=== PATIENT | female | born 1990 ===

== ENCOUNTER 2016-11-18 21:14 | Emergency (ER) | payer SELFPAY ==
[2016-11-18 21:14] VITALS: BMI 30.2
[2016-11-18 21:57] VITALS: BP 131/77; PULSE 78; RESP 16; TEMP 98.2; O2SAT 100
--- NOTE | 2016-11-18 22:43 | ED PDOC ---
HPI: Abdomen Time Seen by Provider: 11/18/16 22:08 Chief Complaint (Nursing): Abdominal Pain Chief Complaint (Provider): : abdominal pain History Per: Patient History/Exam Limitations: no limitations Onset/Duration Of Symptoms: Days (3) Current Symptoms Are (Timing): Still Present Location Of Pain/Discomfort: RLQ, LLQ, Suprapubic Quality Of Discomfort: Cramping Additional History Per: Patient Additional Complaint(s): 26 y/o female, approx 6 weeks gestation, presents with lower abdominal cramping x 3 days. Denies fever, nausea/vomiting, dysuria, hematuria, vaginalbleeding/ discharge. Patient also notes red rash to neck x 3 days. Associated mild itching. Denies known allergen. Abnormal Vaginal Bleeding: No Last Menstral Period: 09/30/16 : 2 Para: 1 Miscarriage: 0 Past Medical History Reviewed: Historical Data, Nursing Documentation, Vital Signs Vital Signs: Last Vital Signs Temp 98.2 F 11/18/16 21:53 Pulse 78 11/18/16 21:53 Resp 16 11/18/16 21:53 BP 131/77 11/18/16 21:53 Pulse Ox 100 11/19/16 01:07 - Medical History PMH: Gastritis - Surgical History Surgical History: No Surg Hx - Family History Family History: States: Unknown Family Hx - Home Medications Home Medications: Ambulatory Orders Medication Instructions Recorded Famotidine [Pepcid] 20 mg PO DAILY #30 tab 03/05/16 Ondansetron ODT [Zofran ODT] 4 mg PO TID #21 odt 03/05/16 Naproxen [Naprosyn] 500 mg PO BID PRN #15 tablet 03/09/16 Acetaminophen 325 mg PO Q6H PRN #50 tablet 03/21/16 Omeprazole 40 mg PO DAILY #30 capsule. 03/21/16 - Allergies Allergies/Adverse Reactions: Allergies Allergy/AdvReac Type Severity Reaction Status Date / Time No Known Allergies Allergy Verified 11/18/16 21:53 Review of Systems ROS Statement: Except As Marked, All Systems Reviewed And Found Negative Genitourinary Female: Positive for: Pelvic Pain Skin: Positive for: Rash Physical Exam - Reviewed Nursing Documentation Reviewed: Yes Vital Signs Reviewed: Yes - Physical Exam Appears: Positive for: Well, Non-toxic, No Acute Distress Head Exam: Positive for: ATRAUMATIC, NORMAL INSPECTION, NORMOCEPHALIC Skin: Positive for: Rash (erythematous patchy flat petecchiae rash noted to neck ) ENT: Positive for: Normal ENT Inspection Cardiovascular/Chest: Positive for: Regular Rate, Rhythm Respiratory: Positive for: Normal Breath Sounds Gastrointestinal/Abdominal: Positive for: Bowel Sounds, Soft, Tenderness (rlq, suprpaubic, llq) Extremity: Positive for: Normal ROM Neurologic/Psych: Positive for: Alert, Oriented - Laboratory Results Result Diagrams: 11/18/16 23:47 11/18/16 23:47 Urine POC: Positive Urine dip results: Negative for: Leukocyte Esterase, Blood, Nitrate, Ketones - ECG O2 Sat by Pulse Oximetry: 100 - Progress ED Course And Treament: labs, urine, u/s EXAM: US , Transvaginal. CLINICAL HISTORY: 26 years old, female; Pain; Other: Pelvic pain; Gestational age or lmp: 09/30/16 ; ; Additional info: , pelvic pain TECHNIQUE: Real-time transvaginal obstetrical ultrasound of the maternal pelvis and a first trimester with image documentation. Transvaginal imaging was used for better evaluation of the fetus and adnexa. COMPARISON: No relevant prior studies available. FINDINGS: Gestation: Single live intrauterine gestation. heart rate of 163 beats per minute. [place]-rump length of 1.26 cm, correlating with gestational age of 7 weeks 3 days. Uterus/cervix: No subchorionic hemorrhage. No cervical dilatation or effacement. Ovaries: Normal ovaries. No adnexal masses. Free fluid: No significant free fluid. IMPRESSION: 1. Single live intrauterine gestation. 2. Incidental/non-acute findings are described above. Patient educated on findings, discharged with instructions to follow up [facility]. Advised cool compresses to rash, calamine lotion for itching, powder. Return to ED for worsening/concerning symptoms. Disposition - Clinical Impression Clinical Impression: Abdominal pain in , Rash - Patient ED Disposition Is Patient to be Admitted: No Counseled Patient/Family Regarding: Studies Performed, Diagnosis, Need For Followup - Disposition [facility]] Jania Calvo MD [Primary Care Provider] - Disposition: Routine/Home Disposition Time: 00:51 Condition: STABLE Instructions: Abdominal Pain in (ED), Acute Rash (ED)
[2016-11-19 00:05] LABS: BASO % 0.2 % (0.0-2.0); EOS % 0.5 % (0.0-4.0); HEMATOCRIT 37.2 % (34.0-47.0); LYMPH # 2.1 K/uL (1.0-4.3); LYMPH % 24.3 % (20.0-40.0); MEAN CELL VOLUME 84.2 fl (81.0-99.0); MEAN CORPUSCULAR HEMOGLOBIN 28.4 pg (27.0-31.0); MEAN CORPUSCULAR HGB CONC 33.7 g/dL (33.0-37.0); MONO # 0.7 K/uL (0.0-0.8); MONO % 8.3 % (0.0-10.0); NEUT # 5.7 K/uL (1.8-7.0); NEUT % 66.7 % (50.0-75.0); RED CELL DISTRIBUTION WIDTH 16.4 % (11.5-14.5); WHITE BLOOD COUNT 8.5 K/uL (4.8-10.8)
[2016-11-19 00:07] LABS: BLOOD UREA NITROGEN 5 mg/dl (7-17); CARBON DIOXIDE 24 mmol/L (22-30); CHLORIDE 100 mmol/L (98-107); GFR AFRICAN-AMERICAN > 60; GLUCOSE,RANDOM 87 mg/dL (65-105); POTASSIUM 3.5 MMOL/L (3.6-5.0); SODIUM 136 mmol/l (132-148)
[2016-11-19 00:08] LABS: ALB/GLOB RATIO 1.3 (1.0-2.1); ALKALINE PHOSPHATASE 51 U/L (38-126); ALT/SGPT 19 U/L (9-52); AST/SGOT 21 U/L (14-36); BILIRUBIN,TOTAL 0.6 mg/dl (0.2-1.3); CALCIUM 9.2 mg/dL (8.4-10.2); TOTAL PROTEIN 6.8 G/DL (6.3-8.2)
--- NOTE | 2016-11-19 00:16 | US ---
EXAM: US , Transvaginal. CLINICAL HISTORY: 26 years old, female; Pain; Other: Pelvic pain; Gestational age or lmp: 09/30/16; ; Additional info: , pelvic pain TECHNIQUE: Real-time transvaginal obstetrical ultrasound of the maternal pelvis and a first trimester with image documentation. Transvaginal imaging was used for better evaluation of the fetus and adnexa. COMPARISON: No relevant prior studies available. FINDINGS: Gestation: Single live intrauterine gestation. heart rate of 163 beats per minute. [place]-rump length of 1.26 cm, correlating with gestational age of 7 weeks 3 days. Uterus/cervix: No subchorionic hemorrhage. No cervical dilatation or effacement. Ovaries: Normal ovaries. No adnexal masses. Free fluid: No significant free fluid. IMPRESSION: 1. Single live intrauterine gestation. 2. Incidental/non-acute findings are described above.
== END 2016-11-19 02:51 | disposition home or self-care (01) ==
LOC: H.ER 21:14
DX: O26.891 Other specified pregnancy related conditions, first trimester (principal); R10.2 Pelvic and perineal pain; R21 Rash and other nonspecific skin eruption

== ENCOUNTER 2017-01-16 03:43 | Emergency (ER) | payer MEDICAID, OTHER ==
[2017-01-16 03:43] VITALS: BMI 30.2
[2017-01-16 04:26] VITALS: BP 117/67; PULSE 81; RESP 20; TEMP 99.2; O2SAT 98
--- NOTE | 2017-01-16 04:28 | ED PDOC ---
HPI: Chest Pain Time Seen by Provider: 01/16/17 03:50 Chief Complaint (Nursing): Chest Pain Chief Complaint (Provider): Chest Pain History Per: Patient Additional Complaint(s): Pt reports she is approx 15 weeks and Complains of left sided chest pain since yesterday. Reports pain has been constant and is worsened today and now accompanied by a headache. No acute distress, patient is anxious on assessment. Past Medical History Vital Signs: Last Vital Signs Temp 99.2 F 01/16/17 04:05 Pulse 81 01/16/17 04:05 Resp 20 01/16/17 04:05 BP 117/67 01/16/17 04:05 Pulse Ox 98 01/16/17 04:05 - Medical History PMH: Gastritis - Family History Family History: States: Unknown Family Hx - Home Medications Home Medications: Ambulatory Orders Medication Instructions Recorded Famotidine [Pepcid] 20 mg PO DAILY #30 tab 03/05/16 Ondansetron ODT [Zofran ODT] 4 mg PO TID #21 odt 03/05/16 Naproxen [Naprosyn] 500 mg PO BID PRN #15 tablet 03/09/16 Acetaminophen 325 mg PO Q6H PRN #50 tablet 03/21/16 Omeprazole 40 mg PO DAILY #30 capsule. 03/21/16 - Allergies Allergies/Adverse Reactions: Allergies Allergy/AdvReac Type Severity Reaction Status Date / Time No Known Allergies Allergy Verified 01/16/17 04:05 - ECG O2 Sat by Pulse Oximetry: 98
[2017-01-16 04:49] LABS: BASO % 0.2 % (0.0-2.0); EOS % 0.5 % (0.0-4.0); HEMATOCRIT 35.6 % (34.0-47.0); LYMPH # 1.5 K/uL (1.0-4.3); LYMPH % 15.7 % (20.0-40.0); MEAN CELL VOLUME 87.6 fl (81.0-99.0); MEAN CORPUSCULAR HEMOGLOBIN 29.5 pg (27.0-31.0); MEAN CORPUSCULAR HGB CONC 33.7 g/dL (33.0-37.0); MEAN PLATELET VOLUME 8.8 fl (7.2-11.7); MONO # 0.8 K/uL (0.0-0.8); MONO % 8.1 % (0.0-10.0); NEUT # 7.3 K/uL (1.8-7.0); NEUT % 75.5 % (50.0-75.0); NRBC % 0.1 % (0.0-0.0); RED CELL DISTRIBUTION WIDTH 13.8 % (11.5-14.5); WHITE BLOOD COUNT 9.6 K/uL (4.8-10.8)
[2017-01-16 04:55] LABS: ALB/GLOB RATIO 1.2 (1.0-2.1); ALKALINE PHOSPHATASE 47 U/L (38-126); ALT/SGPT 20 U/L (9-52); AST/SGOT 18 U/L (14-36); BILIRUBIN,TOTAL 0.2 mg/dl (0.2-1.3); BLOOD UREA NITROGEN 5 mg/dl (7-17); CALCIUM 8.6 mg/dL (8.4-10.2); CARBON DIOXIDE 22 mmol/L (22-30); CHLORIDE 105 mmol/L (98-107); GFR AFRICAN-AMERICAN > 60; GLUCOSE,RANDOM 101 mg/dL (65-105); POTASSIUM 3.6 MMOL/L (3.6-5.0); SODIUM 136 mmol/l (132-148); TOTAL PROTEIN 6.2 G/DL (6.3-8.2)
[2017-01-16 05:22] LABS: RBC URINE 1 /hpf (0-3); URINE BACTERIA RARE (<OCC); URINE BILIRUBIN NEGATIVE (NEGATIVE); URINE BLOOD NEGATIVE (NEGATIVE); URINE COLOR YELLOW (YELLOW); URINE GLUCOSE (UA) NEG (Normal); URINE KETONE NEGATIVE (NEGATIVE); URINE LEUKOCYTE ESTERASE NEG Leu/uL (Negative); URINE PROTEIN NEGATIVE (NEGATIVE); URINE UROBILINOGEN 0.2-1.0 mg/dL (0.2-1.0); WBC URINE < 1 /hpf (0-5)
--- NOTE | 2017-01-16 18:42 | CARD ---
APPROVED REPORT EKG Measurement Heart [id number] <Conclusion> Normal sinus rhythm Normal ECG
== END 2017-01-16 05:55 | disposition home or self-care (01) ==
LOC: H.ER 03:43
DX: R07.89 Other chest pain (principal); R51 Headache; K29.70 Gastritis, unspecified, without bleeding; Z33.1 Pregnant state, incidental

== ENCOUNTER 2017-01-29 01:14 | Emergency (ER) | payer MEDICAID ==
[2017-01-29 01:15] VITALS: BMI 30.2
[2017-01-29 01:34] VITALS: BP 129/64; PULSE 79; RESP 17; TEMP 98.6; O2SAT 99
--- NOTE | 2017-01-29 03:04 | US ---
EXAM: US After First Trimester, Transabdominal CLINICAL HISTORY: 26 years old, female; Pain; Other: Abd pain; Gestational age or lmp: 09/30/16; ; Additional info: 16 wks, preg, abd pain TECHNIQUE: Real-time transabdominal obstetrical ultrasound of the maternal pelvis and a second or third trimester with image documentation. COMPARISON: No relevant prior studies available. FINDINGS: Fetus: Single live intrauterine gestation. Heart rate: heart rate of 139 beats per minute. Presentation: Cephalic. Placenta: Posterior fundal. No placenta previa or abruption. Amniotic fluid: Normal. Anatomy: No gross anomaly is appreciated. BIOMETRICS Gestational age by US: Estimated gestational age of 18 weeks 0 days by measurements. EFW: Estimated weight of 204 g. BPD: 4.2 cm, correlating with 18 weeks 5 days. HC: 14.5 cm, correlating with 17 weeks 5 days. AC: 11.3 cm, correlating with 17 weeks 1 day. FL: 2.7 cm, correlating with 18 weeks 1 day. MATERNAL: Uterus: Unremarkable. No myometrial mass. Cervix: No cervical dilatation or effacement. Adnexa: Ovaries: Not visualized. No adnexal masses. Free fluid: No significant free fluid. IMPRESSION: 1. Single live intrauterine gestation. 2. Incidental/non-acute findings are described above.
--- NOTE | 2017-01-29 04:16 | ED PDOC ---
HPI: Abdomen Time Seen by Provider: 01/29/17 01:42 Chief Complaint (Nursing): Abdominal Pain Chief Complaint (Provider): Abdominal Pain History Per: Patient History/Exam Limitations: no limitations Onset/Duration Of Symptoms: Days (x1) Outside of [place] travel?: No Current Symptoms Are (Timing): Still Present Location Of Pain/Discomfort: LUQ, LLQ Associated Symptoms: Urinary Symptoms (Frequency). denies: Nausea, Vomiting Additional Complaint(s): 26 year old female presents to ED with complaints of lower abdominal pain x1 day and is currently 16 weeks . (-) nausea, vomiting, or vaginal discharge/bleeding. PCP: [place] Abnormal Vaginal Bleeding: No Past Medical History Reviewed: Historical Data, Nursing Documentation, Vital Signs Vital Signs: Last Vital Signs Temp 98.6 F 01/29/17 01:20 Pulse 79 01/29/17 01:20 Resp 17 01/29/17 01:20 BP 129/64 01/29/17 01:20 Pulse Ox 99 01/29/17 05:17 - Medical History PMH: Gastritis Denies: Bronchitis - Surgical History Surgical History: No Surg Hx - Family History Family History: States: Unknown Family Hx - Social History Current smoker - smoking cessation education provided: No Ex-Smoker (has not smoked in the last 12 months): No Alcohol: None Drugs: Denies - Home Medications Home Medications: Ambulatory Orders Medication Instructions Recorded Famotidine [Pepcid] 20 mg PO DAILY #30 tab 03/05/16 Ondansetron ODT [Zofran ODT] 4 mg PO TID #21 odt 03/05/16 Naproxen [Naprosyn] 500 mg PO BID PRN #15 tablet 03/09/16 Acetaminophen 325 mg PO Q6H PRN #50 tablet 03/21/16 Omeprazole 40 mg PO DAILY #30 capsule. 03/21/16 Doxylamine/Pyridoxine HCl (B6) 1 each PO HS #10 tablet. 01/16/17 [Juana Mitchell 10-10 mg Tablet] Nitrofurantoin Macrocrystals 100 mg PO BID 5 Days 01/29/17 [Macrobid] - Allergies Allergies/Adverse Reactions: Allergies Allergy/AdvReac Type Severity Reaction Status Date / Time No Known Allergies Allergy Verified 01/16/17 04:05 Review of Systems ROS Statement: Except As Marked, All Systems Reviewed And Found Negative Gastrointestinal: Positive for: Abdominal Pain (lower abdominal pain). Negative for: Nausea, Vomiting Genitourinary Female: Negative for: Vaginal Discharge, Vaginal Bleeding Physical Exam - Reviewed Nursing Documentation Reviewed: Yes Vital Signs Reviewed: Yes - Physical Exam Appears: Positive for: Non-toxic, No Acute Distress Skin: Positive for: Normal Color, Warm, Dry Eye Exam: Positive for: Normal appearance Cardiovascular/Chest: Positive for: Regular Rate, Rhythm Respiratory: Positive for: Normal Breath Sounds. Negative for: Respiratory Distress Gastrointestinal/Abdominal: Positive for: Soft, Tenderness (mild suprapubic tenderness) Extremity: Positive for: Normal ROM. Negative for: Deformity Neurologic/Psych: Positive for: Alert, Oriented. Negative for: Motor/Sensory Deficits - ECG O2 Sat by Pulse Oximetry: 99 (RA) Pulse Ox Interpretation: Normal Medical Decision Making Medical Decision Makin Initial impression: UTI v round ligament pain Initial plan: * Acetaminophen 650mg PO * UA * US OB PREG * Re-eval [id number] US FINDINGS Fetus: Single live intrauterine gestation. Heart rate: heart rate of 139 beats per minute. Presentation: Cephalic. Placenta: Posterior fundal. No placenta previa or abruption. Amniotic fluid: Normal. Anatomy: No gross anomaly is appreciated. BIOMETRICS Gestational age by US: Estimated gestational age of 18 weeks 0 days by measurements. EFW: Estimated weight of 204 g. BPD: 4.2 cm, correlating with 18 weeks 5 days. HC: 14.5 cm, correlating with 17 weeks 5 days. AC: 11.3 cm, correlating with 17 weeks 1 day. FL: 2.7 cm, correlating with 18 weeks 1 day. MATERNAL: Uterus: Unremarkable. No myometrial mass. Cervix: No cervical dilatation or effacement. Adnexa: Ovaries: Not visualized. No adnexal masses. Free fluid: No significant free fluid. IMPRESSION: 1. Single live intrauterine gestation. 2. Incidental/non-acute findings are described above Scribe Attestation: Documented by Lucy Cornelius acting as a scribe for Lino Hodge MD. Scribraji Attestation: All medical record entries made by the Scribe were at my direction and personally dictated by me. I have reviewed the chart and agree that the record accurately reflects my personal performance of the history, physical exam, medical decision making, and the department course for this patient. I have also personally directed, reviewed, and agree with the discharge instructions and disposition. Disposition - Clinical Impression Clinical Impression: Abdominal pain affecting , UTI in - Disposition [facility]] Disposition: Routine/Home Disposition Time: 05:30 Condition: STABLE Prescriptions: Nitrofurantoin Macrocrystals [Macrobid] 100 mg PO BID 5 Days Instructions: Abdominal Pain in (ED), Urinary Tract Infection in (ED) Print Language: GEORGIAN
[2017-01-29 05:28] LABS: RBC URINE 3 /hpf (0-3); URINE BACTERIA RARE (<OCC); URINE BILIRUBIN NEGATIVE (NEGATIVE); URINE BLOOD NEGATIVE (NEGATIVE); URINE COLOR STRAW (YELLOW); URINE GLUCOSE (UA) NEG (Normal); URINE KETONE NEGATIVE (NEGATIVE); URINE LEUKOCYTE ESTERASE TRACE Leu/uL (Negative); URINE PROTEIN NEGATIVE (NEGATIVE); URINE UROBILINOGEN 0.2-1.0 mg/dL (0.2-1.0); WBC URINE 1 /hpf (0-5)
== END 2017-01-29 05:24 | disposition home or self-care (01) ==
LOC: H.ER 01:14
DX: O23.40 Unspecified infection of urinary tract in pregnancy, unspecified trimester (principal); Z3A.16 16 weeks gestation of pregnancy

== ENCOUNTER 2018-04-24 16:56 | Emergency (ER) | payer MEDICAID ==
[2018-04-24 16:56] VITALS: BMI 33.3
[2018-04-24 17:18] VITALS: O2SAT 100
[2018-04-24] MEDS ORDERED: Alum-Mag Hydrox-Simethicone Susp (30 mL) PO ONE (17:53)
[2018-04-24] MEDS ORDERED: Sodium Chloride 0.9% 1,000 ML IV STA (17:53)
--- NOTE | 2018-04-24 17:54 | ED PDOC ---
HPI: Abdomen Time Seen by Provider: 04/24/18 17:18 Chief Complaint (Nursing): Abdominal Pain Chief Complaint (Provider): Abdominal Pain History Per: Patient Additional Complaint(s): 27 yo female, no PMH, presents to ED with c/o epigastric abdominal pain associated with nausea and vomiting today. Pt states she can't tolerate any po fluids. denies fever. denies diarrhea. also c.o headache Past Medical History Reviewed: Nursing Documentation, Vital Signs Vital Signs: Last Vital Signs Temp 98.5 F 04/24/18 17:17 Pulse 89 04/24/18 17:17 Resp 19 04/24/18 17:17 BP 118/87 04/24/18 17:17 Pulse Ox 100 04/24/18 17:54 - Medical History PMH: Gastritis Denies: Bronchitis, Depression, Diabetes, HTN - Surgical History Surgical History: No Surg Hx - Family History Family History: States: Unknown Family Hx - Living Arrangements Living Arrangements: With Family - Social History Current smoker - smoking cessation education provided: No Alcohol: None Drugs: Denies - Home Medications Home Medications: Ambulatory Orders Medication Instructions Recorded Famotidine [Pepcid] 20 mg PO DAILY #30 tab 03/05/16 Ondansetron ODT [Zofran ODT] 4 mg PO TID #21 odt 03/05/16 Naproxen [Naprosyn] 500 mg PO BID PRN #15 tablet 03/09/16 Acetaminophen 325 mg PO Q6H PRN #50 tablet 03/21/16 Omeprazole 40 mg PO DAILY #30 capsule. 03/21/16 Doxylamine/Pyridoxine HCl (B6) 1 each PO HS #10 tablet. 01/16/17 [Dichaylee Mitchell 10-10 mg Tablet] Nitrofurantoin Macrocrystals 100 mg PO BID 5 Days cap 01/29/17 [Macrobid] Ibuprofen [Motrin Tab] 600 mg PO Q6 PRN tab 06/22/17 Famotidine [Pepcid] 20 mg PO DAILY #20 tab 04/24/18 - Allergies Allergies/Adverse Reactions: Allergies Allergy/AdvReac Type Severity Reaction Status Date / Time No Known Allergies Allergy Verified 01/16/17 04:05 Review of Systems ROS Statement: Except As Marked, All Systems Reviewed And Found Negative Gastrointestinal: Positive for: Nausea, Vomiting, Abdominal Pain Physical Exam - Reviewed Nursing Documentation Reviewed: Yes Vital Signs Reviewed: Yes - Physical Exam Appears: Positive for: Well, Non-toxic, No Acute Distress Head Exam: Positive for: ATRAUMATIC, NORMAL INSPECTION, NORMOCEPHALIC Skin: Positive for: Normal Color, Warm, DRY Eye Exam: Positive for: EOMI, Normal appearance, PERRL ENT: Positive for: Normal ENT Inspection Neck: Positive for: Normal, Painless ROM Cardiovascular/Chest: Positive for: Regular Rate, Rhythm Respiratory: Positive for: CNT, Normal Breath Sounds Gastrointestinal/Abdominal: Positive for: Normal Exam, Soft Back: Positive for: Normal Inspection Extremity: Positive for: Normal ROM Neurologic/Psych: Positive for: Alert, Oriented - Laboratory Results Result Diagrams: 04/24/18 18:00 04/24/18 18:00 - ECG O2 Sat by Pulse Oximetry: 100 Medical Decision Making Medical Decision Making: IV access established and treatmetn initiated with IV Pepcid, IVF and GI cocktail Pt reports feeling greatly improved on re-eval Disposition - Clinical Impression Clinical Impression: Gastritis - Patient ED Disposition Is Patient to be Admitted: No - Disposition Disposition: Routine/Home Disposition Time: 19:42 Condition: STABLE Prescriptions: Famotidine [Pepcid] 20 mg PO DAILY #20 tab Instructions: Gastritis (DC) Forms: [facility] (Mauritian)
[2018-04-24] MEDS ORDERED: Alum-Mag Hydrox-Simethicone Susp (30 mL) ONE (18:10)
[2018-04-24 18:12] LABS: BASO % 0.2 % (0.0-2.0); EOS % 0.2 % (0.0-4.0); LYMPH # 1.9 K/uL (1.0-4.3); LYMPH % 22.4 % (20.0-40.0); MEAN CELL VOLUME 86.3 fl (81.0-99.0); MEAN CORPUSCULAR HEMOGLOBIN 29.2 pg (27.0-31.0); MEAN CORPUSCULAR HGB CONC 33.8 g/dL (33.0-37.0); MEAN PLATELET VOLUME 9.4 fl (7.2-11.7); MONO # 0.4 K/uL (0.0-0.8); MONO % 4.8 % (0.0-10.0); NEUT # 6.3 K/uL (1.8-7.0); NEUT % 72.4 % (50.0-75.0); NRBC % 0.1 % (0.0-0.0); RBC 4.8 Mil/uL (3.80-5.20); RED CELL DISTRIBUTION WIDTH 12.7 % (11.5-14.5); WHITE BLOOD COUNT 8.7 K/uL (4.8-10.8)
[2018-04-24 18:14] LABS: SQUAMOUS EPITHIAL 1 /hpf (0-5); URINE BACTERIA RARE (<OCC); URINE BILIRUBIN NEGATIVE (NEGATIVE); URINE BLOOD NEGATIVE (NEGATIVE); URINE CLARITY CLEAR (Clear); URINE COLOR STRAW (YELLOW); URINE GLUCOSE (UA) NEG (Normal); URINE LEUKOCYTE ESTERASE NEG Leu/uL (Negative); URINE PROTEIN NEGATIVE (NEGATIVE); URINE UROBILINOGEN 0.2-1.0 mg/dL (0.2-1.0)
[2018-04-24 18:22] LABS: ALB/GLOB RATIO 1.6 (1.0-2.1); ALBUMIN 4.5 g/dL (3.5-5.0); ALT/SGPT 17 U/L (9-52); AST/SGOT 25 U/L (14-36); BLOOD UREA NITROGEN 12 mg/dl (7-17); GFR NON-AFRICAN AMERICAN > 60
[2018-04-24 20:02] VITALS: BP 112/56; PULSE 73; RESP 18; TEMP 98.6
== END 2018-04-24 20:11 | disposition home or self-care (01) ==
LOC: H.ER 16:56
DX: K29.70 Gastritis, unspecified, without bleeding (principal)
CPT/HCPCS: 80053; 81003; 84484; 85025; 96374; 99284; J2405; J7030